=== PATIENT | female | born 1960 | race Caucasian/White ===

== ENCOUNTER 2019-11-21 09:31 | Outpatient (CLI) | payer BC, SELFPAY ==
--- NOTE | 2019-11-21 10:18 | ECG_ITS ---
Measurements Intervals [place] Rate: 61 P: 85 MN: 155 QRS: 85 QRSD: 95 T: 76 QT: 403 QTc: 407 SINUS RHYTHM No previous ECG available for comparison Electronically Signed On 11-21-2019 19:32:47 CHEESEMAKING [employer]ORER by Good Victoria M.D. [id number]
[2019-11-21 11:06] LABS: Basophils # 0.1 10^3/uL (0.0-0.1); Basophils % 0.8 %; Eosinophils # 0.1 10^3/uL (0.0-0.8); Eosinophils % 1.6 %; Hemoglobin 15.5 g/dL (11.5-15.3); Lymphocytes # 2.5 10^3/uL (0.8-4.8); Lymphocytes % 29.5 %; Mean Corpuscular Hemoglobin 32.7 pg (28.0-34.0); Mean Corpuscular Volume 99.2 fL (81-99); Mean Platelet Volume 9.2 fL (7.4-10.4); Monocytes # 0.7 10^3/uL (0.2-0.9); Monocytes % 8.6 %; Neutrophils # 4.9 10^3/uL (1.8-7.7); Nucleated Red Blood Cells % 0 %; Platelet Count 290 10^3/cmm (130-400); Red Blood Count 4.74 10^6/uL (4.1-5.3); Red Cell Distribution Width 12.7 % (12.1-15.1); White Blood Count 8.4 10^3/uL (4.0-10.0)
[2019-11-21 11:28] LABS: Anion Gap 14.3 (5-19); Blood Urea Nitrogen 9 mg/dL (8-23); Calcium 10.4 mg/Dl (8.8-10.2); Carbon Dioxide 29 mmol/L (22-29); Chloride 96 mmol/L (98-107); Glomerular Filtration Rate 125.4 mL/min (90-130); Glucose 98 mg/dL (74-106); Potassium 5.3 mmol/L (3.5-5.1); Sodium 134 mmol/L (136-145)
== END 2019-11-21 09:32 | disposition home or self-care (01) ==
LOC: RAD 09:35 → RT 09:40
PROVIDERS: Otolaryngology; Family Provider Internal Medicine; PCP Internal Medicine; Visit Provider Specialist
DX: Z01.810 Encounter for preprocedural cardiovascular examination (principal)
CPT/HCPCS: 80048; 85025; 93005

== ENCOUNTER 2019-11-25 15:07 | Outpatient (CLI) | payer BC, SELFPAY ==
--- NOTE | 2019-11-25 15:13 | CT_ITS ---
WS: [id number] CT HEAD WITH AND WITHOUT CONTRAST HISTORY: Brain, aneurysm, history of repair. TECHNIQUE: Noncontrast 2.5 mm axial images obtained from the vertex to the skull base. Additional meet ging performed at 2.5 mm axial images status post IV contrast. Bone and soft tissue windows are revie wed. All CT scans at [facility] use at least one of these dose optimization techniques: a utomated exposure control; mA and/or kV adjustment per patient size (includes targeted exams where do se is matched to clinical indication); or iterative reconstruction. CONTRAST: Omnipaque 300; 95 mL IV. DLP: 2260.57 mGy-cm. COMPARISON: None available. Significant artifact through the brain due to prior coiling of an aneurysm. Artifact is centered [place] g the region of the RIGHT cavernous sinus. On the felt hat flanging operator film there are multiple coils and clips. No p rior studies to evaluate for interval change. No acute hemorrhage is identified on the noncontrast examination. No midline shift or mass effect. Distal vertebral arteries are enhancing. Tip of the basilar artery is obscured by artifact. Large por tions of the distal carotid arteries and the [place] are also obscured. Evaluation f or recurrent aneurysm would be very difficult. There are no secondary findings of hemorrhage. Paranasal sinuses as visualized: Clear. Mastoid air cells: Clear. Calvarium and scalp: Large craniectomy defect involving the LEFT temporal lobe and craniotomy. CT/CT head wo/w con [id number] IMPRESSION: 1. Status post aneurysm coiling and clipping. Extensive beam hardening effect centered in the region of the distal RIGHT ICA or proximal RIGHT MCA. Large por tions of the brain in the [place] cannot be evaluated adequately with this amount of artifact. 2. No acute blood products are identified. 3. Prior LEFT temporal craniectomy/craniotomy. No appreciable aneurysm identif ied.
[2019-11-25] MEDS: iohexol 300 mg/mL 100 mL Btl IV (15:32)
== END 2019-11-25 15:08 | disposition home or self-care (01) ==
LOC: RADWPI 15:10
PROVIDERS: Family Provider Internal Medicine; PCP Internal Medicine; Visit Provider Physician Assistant
DX: I67.1 Cerebral aneurysm, nonruptured (principal); Z98.890 Other specified postprocedural states
CPT/HCPCS: 70470; Q9967

== ENCOUNTER 2019-12-06 12:27 | Outpatient (CLI) | payer BC, SELFPAY ==
--- NOTE | 2019-12-06 | XR_ITS ---
WS: [id number] PROCEDURE: XR chest 2V* [id number] CLINICAL INFORMATION: COUGH, SHORTNESS OF BREATH COMPARISON: August 05, 2018 FINDINGS: Heart: Normal cardiac silhouette. Lungs: Chronic emphysematous changes. Hyperinflation. No acute pulmonary infiltrates. Bones: Chronic appearing Anterior wedging at the thoracolumbar junction. XR/XR chest 2V* [id number] IMPRESSION: Chronic emphysematous changes with hyperinflation. No acute pulmonary infiltrat es.
== END 2019-12-06 12:28 | disposition home or self-care (01) ==
LOC: RADOUTREAD 15:08
PROVIDERS: Family Provider Internal Medicine; PCP Internal Medicine; Visit Provider Physician Assistant
DX: Z76.89 Persons encountering health services in other specified circumstances (principal)

== ENCOUNTER 2019-12-22 10:15 | Outpatient (CLI) | payer BC, SELFPAY ==
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
== END 2019-12-22 10:16 | disposition home or self-care (01) ==
LOC: ONCMED 10:22
PROVIDERS: Family Provider Internal Medicine; PCP Physician Assistant; Referring Provider Specialist; Visit Provider Radiology Radiation Oncology
DX: C10.1 Malignant neoplasm of anterior surface of epiglottis (principal); J44.9 Chronic obstructive pulmonary disease, unspecified; F17.210 Nicotine dependence, cigarettes, uncomplicated
CPT/HCPCS: 99205

== ENCOUNTER 2019-12-29 09:24 | Outpatient (CLI) | payer BC, SELFPAY ==
--- NOTE | 2019-12-29 09:29 | CT_ITS ---
WS: [id number] CT NECK WITH CONTRAST HISTORY: MALIGNANT NEOPLASM OF SUPRAGLOTTIS TECHNIQUE: Contiguous 5 mm axial images are performed through the neck with intravenous contrast. Sag ittal and coronal reformats are also submitted. All CT scans at [facility] use at least o ne of these dose optimization techniques: automated exposure control; mA and/or kV adjustment per pat ient size (includes targeted exams where dose is matched to clinical indication); or iterative recons truction. CONTRAST: CONTRAST: Omnipaque 300; 95 mL IV. DLP: 2067.19 mGycm COMPARISON: None available. Nasopharynx, oropharynx, hypopharynx and larynx are unremarkable. No soft tissue masses or abnormal e nhancement. Torus tubarius and fossa of Rosenmuller and parapharyngeal fat are normal. No significant lymphadenopathy is identified. Largest lymph node LEFT jugulodigastric measures 7 mm i n short axis diameter. Subcentimeter RIGHT thyroid nodule. Parotid salivary glands are unremarkable. No osseous abnormalities. Prior LEFT temporal craniotomy. Patient is status post coiling of the distal RIGHT ICA or proximal MC A. There is significant artifact through the skull base. Visualized paranasal sinuses and mastoid air cells are normal. Chronic emphysema at the lung apices. CT/CT neck w con* [id number] IMPRESSION: 1. No neck mass or adenopathy. No supraglottic tumor is identified. 2. Prior LEFT temporal craniectomy/craniotomy from prior aneurysm clipping.
[2019-12-29] MEDS: iohexol 300 mg/mL 100 mL Btl IV (09:45)
== END 2019-12-29 09:25 | disposition home or self-care (01) ==
LOC: RADWPI 09:27
PROVIDERS: Family Provider Internal Medicine; PCP Physician Assistant; Visit Provider Specialist
DX: C32.1 Malignant neoplasm of supraglottis (principal)
CPT/HCPCS: 70491; Q9967

== ENCOUNTER 2020-03-30 06:00 | Outpatient (RCR) | payer BC, SELFPAY | END 2020-04-08 23:59 | disposition home or self-care (01) | LOC: SST 06:00 | PROVIDERS: Family Provider Internal Medicine; PCP Physician Assistant; Visit Provider Physician Assistant | DX: C32.1 Malignant neoplasm of supraglottis (principal); R13.13 Dysphagia, pharyngeal phase; Z93.1 Gastrostomy status | CPT/HCPCS: 92526; 92610 ==

== ENCOUNTER 2020-04-09 06:00 | Outpatient (RCR) | payer BC, SELFPAY | END 2020-05-08 23:59 | disposition home or self-care (01) | LOC: SST 06:00 | PROVIDERS: PCP Physician Assistant; Visit Provider Physician Assistant | DX: R13.13 Dysphagia, pharyngeal phase (principal); Z85.21 Personal history of malignant neoplasm of larynx | CPT/HCPCS: 92526; 92610 ==

== ENCOUNTER 2020-05-09 06:00 | Outpatient (RCR) | payer BC, SELFPAY | END 2020-06-08 23:59 | disposition home or self-care (01) | LOC: SST 06:00 | PROVIDERS: PCP Physician Assistant; Referring Provider Physician Assistant; Visit Provider Physician Assistant | DX: R13.13 Dysphagia, pharyngeal phase (principal) | CPT/HCPCS: 92526 ==

== ENCOUNTER 2020-05-10 07:09 | Day surgery (SDC) | payer BC, SELFPAY ==
[2020-05-09 13:09] VITALS: BMI 21.2
[2020-05-10] VITALS (9 sets, daily range): BP systolic 113–161; BP diastolic 51–91; PULSE 64–75; RESP 12–20; TEMP 36.5–36.7; O2SAT 92–100
[2020-05-10] MEDS: sodium chloride 0.9% 1,000 ML 30 ML IV (07:45)
--- NOTE | 2020-05-10 08:13 | P.ANESASSM_ITS ---
Pre-Anesthetic Assessment Pre-Anesthetic Assessment: Height/Weight: Height 1.73 m Weight 63.503 kg Temp Pulse Resp BP Pulse Ox 97.7 F 69 20 H 113/57 92 05/10/20 07:23 05/10/20 07:23 05/10/20 07:23 05/10/20 07:23 05/10/20 07:23 Preop Diagnosis: basal cell carincoma Proposed Procedure: Operation Date: 05/10/20 08:30 Proposed Procedures p Excision of basal cell carcinoma of left arm(Left) - Petey Naqvi MD Familial anesthetic complications: none Was Beta Gómez taken within 24 brenda rs: N/A Last intake: Intake Last Liquid Date 05/09/20 Last Liquid Time 22:00 Last Solid Date 05/09/20 Last Solid Time 19:00 Social: Social History: No alcohol and No tobacco Comment: former msoker Exam: Pre-Anes Outpt Exam: alert, oriented x 3, clear to auscultation bilaterally and regular rate & rhythm Airway: Cervical ROM: WNL MP: 2 Dentition: False Additional comments: Patient recently had surgery on larynx and lymph node dissection. She is hoarse. She says her throat is still healing and wants to avoid placement of advanced airway devices. I told her with any surgery there is always the possibility that this may be required. She would like to proceed with local supplemented with fentanyl/versed with propofol as last resort. Pulmonary: Pulmonary: COPD Anesthetic Plan: ASA status: 2 Anesthesia: MAC, Local Only and Nurse-admin mod sedation Risk of > 500 ml blood loss (7ml/kg in children): No Meds/Allergies Current Medications: Current Medications Generic Name Dose Route Start Last Admin Trade Name Freq PRN Reason Stop Dose Admin Sodium Chloride 1,000 mls @ 30 ml s/hr 05/10/20 07:30 05/10/20 07:45 Sodium Chloride 0.9% IV 05/11/20 07:29 30 mls/hr .Q24H MADIHA Administration Data Anesthesia Cardiac Studies: No Data to Display
--- NOTE | 2020-05-10 08:35 | W.PM.OPSUD ---
Surgery/Procedure H&P Update DATE OF PROCEDURE: May 10, 2020 DATE H&P PERFORMED: 05/09/20 H&P UPDATE INFORMATION: No changes to prior documentation PREOP DIAGNOSIS: basal cell carincoma PLANNED PROCEDURE: Operation Date: 05/10/20 08:30 Proposed Procedures p Excision of basal cell carcinoma of left arm(Left) - Petey Naqvi MD
--- NOTE | 2020-05-10 09:26 | PM.OP ---
Operative Report Date of procedure: May 10, 2020 Pre-op Diagnosis: Basal cell carincoma on the left arm. Post-op diagnosis: same Procedure Done: 1. Excision of 3+ centimeter basal cell carcinoma on the left arm. 2. Intermediate layered closure of 10 cm incision. Specimens removed/disposition: Basal cell carcinoma from upper aspect of left arm. Pathology: As above. Surgeon: Petey Naqvi Anesthesia: Local Estimated blood loss (mL): 5 Complications: None. Condition: stable Disposition: same day Procedure: The patient was brought to the operating room and was placed in a supine position on the operating room table. The upper aspect of the left arm was prepped and draped in a sterile fashion. A combination of 1% lidocaine with 1 to 100,000 parts epinephrine and 0.5% bupivacaine was used for local anesthesia throughout the procedure. A longitudinal elliptical incision was carried out around the basal cell carcinoma area that measured over 3 cm in greatest diameter. Cautery was used to divide the tissue into the subcutaneous tissue and then was used to remove the entire ellipse of skin. Cautery was also used to undermine the skin both medially and laterally. The wound was irrigated with saline. Hemostasis was good. The 10 cm incision was then closed in layers with an underlying layer of inverted interrupted sutures of 3-0 Vicryl in the dermis. The skin was reapproximated using a running subcuticular suture of 4-0 Vicryl. Benzoin and Steri-Strips were placed over the incision and a sterile bandage followed. The patient was taken to the outpatient recovery area in stable condition postoperatively.
== END 2020-05-10 09:50 | disposition home or self-care (01) ==
PROVIDERS: PCP Physician Assistant; Visit Provider Surgery
PROC: (CPT 11604; principal; 2020-05-10 08:20)
DX: C44.619 Basal cell carcinoma of skin of left upper limb, including shoulder (principal); Z87.891 Personal history of nicotine dependence; J43.9 Emphysema, unspecified
CPT/HCPCS: 11604; 12032; 12345; J0690; J2001; J3490; J7030

== ENCOUNTER 2020-05-14 12:30 | Outpatient (CLI) | payer BC, SELFPAY ==
--- NOTE | 2020-05-14 12:34 | CT_ITS ---
WS: [id number] CT NECK TECHNIQUE: Contrast-enhanced CT of the neck with coronal and sagittal reformatted images. CLINICAL INFORMATION: NEOPLASM OF THE SUPRAGLOTTIS COMPARISON: CT December 29, 2019 DLP: 1552.[address] scans at [facility] use at least one of these dose optimization techniques: automat ed exposure control; mA and/or kV adjustment per patient size (includes targeted exams where dose is matched to clinical indication); or iterative reconstruction. FINDINGS: Prior postoperative changes left temporal craniotomy. Right supraclinoid ICA aneurysm embolization. T his results in beam hardening artifact partially obscuring the skull base. Parotid glands are normal in appearance. Submandibular glands are normal. Normal parapharyngeal fat. Normal posterior nasophary nx. No evidence of supraglottic or glottic mass. Normal piriform sinuses. Stable small right thyroid nodule. No cervical lymphadenopathy. Mastoid air cells and paranasal sinuses are well aerated. Emphysematous changes in the lung apices. CT/CT neck w con* [id number] IMPRESSION: 1. No evidence of supraglottic or glottic mass. 2. No cervical lymphadenopathy. 3. Salivary glands are normal. 4. Stable small right thyroid nodule. 5. Prior postoperative changes left temporal parietal craniotomy. Prior right supraclinoid ICA embolization. 4
[2020-05-14 13:23] LABS: Blood Urea Nitrogen 11 mg/dL (8-23)
[2020-05-14 13:24] LABS: Glomerular Filtration Rate 101.6 mL/min (90-130)
[2020-05-14] MEDS: iohexol 300 mg/mL 100 mL Btl IV (13:48)
== END 2020-05-14 12:31 | disposition home or self-care (01) ==
LOC: RADWPI 12:33
PROVIDERS: Family Provider Physician Assistant; PCP Physician Assistant; Visit Provider Specialist
DX: C32.1 Malignant neoplasm of supraglottis (principal); E04.1 Nontoxic single thyroid nodule
CPT/HCPCS: 70491; 82565; 84520; 88305; Q9967

== ENCOUNTER 2020-05-17 11:04 | Outpatient (CLI) | payer BC, SELFPAY ==
--- NOTE | 2020-05-17 11:12 | FL_ITS ---
WS: [id number] MODIFIED BARIUM SWALLOW HISTORY: Pharyngeal dysphagia FLUOROSCOPY TIME: 1.8 minutes. Modified barium swallow was performed by the speech pathologist. Fluoroscopy was provided with the pa tient in a lateral projection. Multiple food consistencies were provided. Patient swallowed all food and barium without difficulty. There is a a few episodes of laryngeal pene tration but no aspiration. Barium tablet was swallowed without difficulty. FL/FL barium swallow modifd [id number] IMPRESSION: 1. No aspiration. 2. Minimal laryngeal penetration. Please see speech therapist report also for recommendations.
== END 2020-05-17 11:05 | disposition home or self-care (01) ==
LOC: RAD 11:07
PROVIDERS: PCP Physician Assistant; Visit Provider Physician Assistant
DX: R13.13 Dysphagia, pharyngeal phase (principal)
CPT/HCPCS: 74230; 92611

== ENCOUNTER 2021-04-13 14:15 | Emergency (ER) | payer OTHER, SELFPAY ==
[2021-04-13 14:35] VITALS: BP 131/72; PULSE 77; RESP 18; TEMP 36.8; O2SAT 94; BMI 22.3
--- NOTE | 2021-04-13 14:46 | XRR_ITS ---
PROCEDURE INFORMATION: Exam: XR Chest Exam date and time: 04/13/2021 2:49 PM Age: 60 years old Clinical indication: Pain; On breathing; Additional info: Palpitations TECHNIQUE: Imaging protocol: XR of the chest. Views: 1 view. COMPARISON: CR XR chest 2V* [id number] 12/06/2019 12:27 PM FINDINGS: Lungs: The lungs are clear. Pleural spaces: Unremarkable. No pleural effusion. No pneumothorax. Heart/Mediastinum: Unremarkable. No cardiomegaly. Bones/joints: Unremarkable. XR/XR chest 1V portable [id number] IMPRESSION: No acute cardiopulmonary abnormality.
--- NOTE | 2021-04-13 14:46 | ECG_ITS ---
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
--- NOTE | 2021-04-13 14:47 | W.ED.CHESTPA ---
HPI - Chest Pain General: Chief Complaint: Chest Pain Stated Complaint: irregular heart beat,sob Time Seen by Provider: 04/13/21 14:42 History of Present Illness: HPI narrative: This patient is a 60-year-old female who presents to the emergency department for an occasional palpitations. Patient states that started a couple weeks ago after she started taking albuterol she taken inhaled dose of albuterol to get palpitations. Patient states that happened yesterday to and again last night. Patient is wants to be checked to make sure things okay. Patient denies any signs and symptoms at this time. Timing of current episode: episodic Associated symptoms: Reports palpitations; Deny abdominal pain, dyspnea, fever(s), nausea or vomiting Review of Systems General: Reports: 10 or more systems reviewed and unremarkable except in HPI and below Const: Denies: fever(s), chills, body aches or fatigue Eyes: Denies: change in vision or blurry vision ENMT: Denies: throat pain, hoarseness or mouth pain Card: Reports: palpitations; Denies: chest pain, irregular heart rhythm, edema, swelling of feet/ankles or lightheadedness Resp: Denies: dyspnea, productive cough, non-productive cough, wheezing or pain on inspiration GI: Denies: abdominal pain, nausea or vomiting : Denies: flank pain, difficulty voiding, dysuria, urinary frequency, urinary urgency or urinary hesitancy Musc: Denies: neck pain, back pain, extremity pain, extremity swelling, joint pain, joint swelling, joint redness, joint warmth or limited range of motion Skin/Breast: Denies: rash, pruritus, erythema or skin tenderness Neuro: Denies: headache(s), numbness in extremities or weakness in extremities Psych: Denies: anxiety or depression Physical Exam Const: COMMON NORMALS: no acute distress, average body habitus, patient oriented x3, no limitations, healthy appearing, alert and well nourished HENMT: COMMON NORMALS: normocephalic, atraumatic, hearing grossly normal bilaterally, external ears normal, EAC's normal, TM's normal bilaterally, Normal external nose present, Normal nasal mucous membranes and turbinates present, moist oral mucous membranes, oropharynx normal, dentition normal and gingiva normal HEAD & SCALP: normocephalic and atraumatic NOSE: Normal external nose present and Normal nasal mucous membranes and turbinates present EXTERNAL EAR: Yes external ears normal EXTERNAL AUDITORY CANAL: EAC's normal TYMPANIC MEMBRANE: TM's normal bilaterally Neck/C-Spine: COMMON NORMALS: full ROM, no lymphadenopathy, supple, no meningeal signs, no JVD, Thyroid normal and No carotid bruits THYROID: Thyroid normal Chest: COMMONS NORMALS: normal inspection of the chest, normal palpation of entire chest wall, normal inspection of the breasts and normal palpation of the breasts Breast/axilla inspection: Yes normal inspection of the breasts BREAST/AXILLA PALPATION: Yes normal palpation of the breasts Resp: COMMON NORMALS: normal respiratory effort, No retractions, No use of accessory muscles, clear to auscultation bilaterally and percussion normal AUSCULTATION: clear to auscultation bilaterally PERCUSSION: percussion normal Cardio: COMMON NORMALS: no JVD, regular rate, regular rhythm, S1 normal heart sound present, S2 normal heart sound present, No gallops present (Cardio), No clicks present (Cardio), No murmurs present (Cardio), No rub (Cardio) and Peripheral pulses 2+ throughout RATE: regular rate RHYTHM: regular rhythm HEART SOUNDS: S1 normal heart sound present and S2 normal heart sound present PERIPHERAL PULSES: Peripheral pulses 2+ throughout GI: COMMON NORMALS: Normal to inspection, nondistended, normoactive bowel sounds present, Soft to palpation, non-tender, No hepatosplenomegaly present, no masses and no bruits PALPATION: Yes Soft to palpation and Yes No hepatosplenomegaly present : COMMON NORMALS: Yes no CVA tenderness, Yes normal external appearance, Yes normal appearance of the vagina, Yes normal appearance of the cervix, Yes normal bimanual exam, Yes No adnexal tenderness and Yes no masses BLADDER/KIDNEY EXAM: Yes no CVA tenderness BIMANUAL EXAM - VAGINA & UTERUS: Yes normal bimanual exam Back/Pelvis: COMMON NORMALS: no CVA tenderness, thoracic and lumbar spine normal to inspection, no thoracic nor lumbar tenderness, thoraco-lumbar ROM normal and straight leg raise negative bilaterally Extremity: COMMON NORMALS: normal to inspection, full ROM, capillary refill normal, no joint enlargement, no clubbing, cyanosis or edema, no calf tenderness and no pedal edema Neuro: COMMON NORMALS: patient oriented x3 SENSORIUM/ORIENTATION: Yes alert MENINGEAL SIGNS: Yes no meningeal signs Course Reevaluation(s): Reevaluation #1: Negative evaluation in the emergency department for any acute findings. Patient has no complaints at this time. Patient is continue all home medications. And follow-up with her primary care physician in 2 to 3 days. Patient should work on trying to stop smoking. Patient states understanding should be discharged home Time: 17:10 Vital Signs: Vital signs: Vital Signs Temperature 98.2 F 04/13/21 14:35 Pulse Rate 77 04/13/21 14:35 Respiratory Rate 18 04/13/21 14:35 Blood Pressure 131/72 04/13/21 14:35 Pulse Oximetry 94 04/13/21 14:35 MDM - Chest Pain MDM Narrative: Medical decision making narrative: Negative evaluation in the emergency department for any acute findings. Patient has no complaints at this time. Patient is continue all home medications. And follow-up with her primary care physician in 2 to 3 days. Patient should work on trying to stop smoking. Patient states understanding should be discharged home Differential Diagnosis: Cardiac arrest differential diagnosis: Likely acute massive pulmonary embolism, acute respiratory failure, acute myocardial infarction and sudden cardiac Medical Records: Attestation: I reviewed the patient's medical records. Lab Data: Attestation: I reviewed the patient's lab results. Labs: Lab Results 04/13/21 04/13/21 04/13/21 Range/Units 15:36 15:36 15:36 WBC 6.9 (4.0-10.0) 10^3/ uL RBC 4.54 (4.1-5.3) 10^6/u L Hgb 14.2 (11.5-15.3) g/dL Hct 42.8 (37.0-47.0) % MCV 94.3 (81-99) fL MCH 31.3 (28.0-34.0) pg MCHC 33.2 (30.0-36.0) g/dL RDW 12.2 (12.1-15.1) % Plt Count 200 (130-400) 10^3/c mm MPV 9.5 (7.4-10.4) fL Neut % (Auto) 56.4 % Lymph % (Auto) 33.4 % [place] % (Auto) 8.5 % Eos % (Auto) 0.4 % Baso % (Auto) 1.2 % Neut # (Auto) 3.90 (1.8-7.7) 10^3/u L Lymph # (Auto) 2.3 (0.8-4.8) 10^3/u L [place] # (Auto) 0.6 (0.2-0.9) 10^3/u L Eos # (Auto) 0.0 (0.0-0.8) 10^3/u L Baso # (Auto) 0.1 (0.0-0.1) 10^3/u L Nucleated RBC % (a uto) 0 % Nucleated RBCs # 0.0 /100WBC Sodium 135 L (136-145) mmol/L Potassium 4.6 (3.5-5.1) mmol/L Chloride 98 (98-107) mmol/L Carbon Dioxide 26 (22-29) mmol/L Anion Gap 15.6 (5-19) BUN 7 L (8-23) mg/dL Creatinine 0.4 L (0.5-0.9) mg/dL GFR Calculation 161.7 H (90-130) mL/min Glucose 89 (65-115) mg/dL Calculated Osmolal ity 277 L (285-295) mOsm/k g Calcium 9.0 (8.5-10.5) mg/dL Total Bilirubin 0.4 (0.15-1.2) mg/dL AST 18 (0-32) U/L ALT 9 (0-33) U/L Alkaline Phosphata se 51 (35-105) IU/L Troponin T Baselin e 12 H (0-10) ng/L NT-Pro-B Natriuret Pep 58 (0-125) pg/mL Total Protein 6.3 L (6.6-8.7) g/dL Albumin 4.6 (3.5-5.2) g/dL Globulin 1.7 (1.3-4.6) g/dL TSH 0.80 (0.27-4.20) uIU/ mL Ethyl Alcohol < 10 (0-10) mg/dL Imaging Data^: CXR: Attestation: I personally reviewed and interpreted this imaging study as follows: My impression: Negative for acute findings EKG Data^: EKG 1: Attestation: I personally reviewed and interpreted this EKG as follows: EKG interpretation date: 04/13/21 EKG interpretation time: 14:32 Interpretation: Sinus rhythm heart rate 76 nonspecific EKG EKG 2: Attestation: I personally reviewed and interpreted this EKG as follows: EKG interpretation date: 04/13/21 EKG interpretation time: 15:26 Prior EKG tracings: available for review Interpretation: Normal sinus rhythm heart rate 65 Discharge Plan Discharge Patient Disposition: Home Clinical Impression: Palpitations Condition: Stable Prescriptions: No Action cetirizine 10 mg tablet 10 mg PO DAILY RF: 0 albuterol sulfate 90 mcg/actuation HFA aerosol inhaler 2 puff INHALATION QID PRN (Reason: Shortness Of Breath) RF: 0 Discharge Orders: Discharge ED (Routine); Ordered 04/13/21 Ordered By: Edgardo Romo Referrals: Georgiana Dickson PA [Primary Care Provider] - Discharge Diet: Advance as tolerated Discharge Activity: Resume usual activity Patient Instructions: Opioid Safety Activity Restrictions/Additional Instructions: Negative evaluation in the emergency department for any acute findings. Patient is continue all home medications. And follow-up with her primary care physician in 2 to 3 days. Patient should work on trying to stop smoking. Coding Level of Care Code ED Stitcher Utility for Chg Fwd Exam Comprehensive
[2021-04-13] MEDS: sodium chloride 0.9% 500 ML IV (15:39)
[2021-04-13 15:44] LABS: Basophils # 0.1 10^3/uL (0.0-0.1); Basophils % 1.2 %; Eosinophils % 0.4 %; Hematocrit 42.8 % (37.0-47.0); Hemoglobin 14.2 g/dL (11.5-15.3); Lymphocytes # 2.3 10^3/uL (0.8-4.8); Lymphocytes % 33.4 %; Mean Corpuscular HGB Conc 33.2 g/dL (30.0-36.0); Mean Corpuscular Hemoglobin 31.3 pg (28.0-34.0); Mean Corpuscular Volume 94.3 fL (81-99); Mean Platelet Volume 9.5 fL (7.4-10.4); Monocytes # 0.6 10^3/uL (0.2-0.9); Monocytes % 8.5 %; Neutrophils % 56.4 %; Nucleated Red Blood Cells % 0 %; Platelet Count 200 10^3/cmm (130-400); Red Blood Count 4.54 10^6/uL (4.1-5.3); Red Cell Distribution Width 12.2 % (12.1-15.1); White Blood Count 6.9 10^3/uL (4.0-10.0)
[2021-04-13 16:13] LABS: Troponin(5th) Baseline 12 ng/L (0-10)
[2021-04-13 16:23] LABS: Alanine Aminotransferase 9 U/L (0-33); Albumin Level 4.6 g/dL (3.5-5.2); Alkaline Phosphatase 51 IU/L (35-105); Blood Urea Nitrogen 7 mg/dL (8-23); Carbon Dioxide 26 mmol/L (22-29); Chloride 98 mmol/L (98-107); Creatinine Clr Calc Pharmacy 149.6612; Globulin 1.7 g/dL (1.3-4.6); Glomerular Filtration Rate 161.7 mL/min (90-130); Glucose 89 mg/dL (65-115); NT Pro B Type Natriuretic Pept 58 pg/mL (0-125); Osmolality Calculated 277 mOsm/kg (285-295); Sodium 135 mmol/L (136-145); Total Bilirubin 0.4 mg/dL (0.15-1.2); Total Protein 6.3 g/dL (6.6-8.7)
[2021-04-13 16:33] LABS: Alcohol Level < 10 mg/dL (0-10)
[2021-04-13 16:34] LABS: Anion Gap 15.6 (5-19)
[2021-04-13 16:35] LABS: Aspartate Amino Transferase 18 U/L (0-32); Potassium 4.6 mmol/L (3.5-5.1)
[2021-04-13 17:10] LABS: Add Urine Microscopic? NO; Charge for UA Resulting for Rev
[2021-04-13 17:14] LABS: Bilirubin Urine Neg (Negative); Blood Urine Neg (Negative); Glucose Urine UA Norm (Normal); Ketones Urine Negative (Negative); Leukocyte Esterase Urine Negative (Negative); Nitrate Urine Negative (Negative); Protein Urine Neg (Negative); Urine Appearance Clear (CLEAR); Urine Color Straw (Yellow); Urobilinogen Urine Norm (Negative); pH Urine 5 (5-7)
[2021-04-13 17:23] LABS: Amphetamines Screen Urine Negative (Negative); Barbiturates Screen Urine Negative (Negative); Benzodiazepines Screen Urine Negative (Negative); Cocaine Screen Urine Negative (Negative); Opiate Screen Urine Negative (Negative); PCP Screen Urine Negative (Negative); THC Screen Urine Positive (Negative)
[2021-04-13 17:44] VITALS: BP 129/67; PULSE 70; RESP 18; O2SAT 97
--- NOTE | 2021-04-13 18:40 | ECG_ITS ---
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
== END 2021-04-13 17:46 | disposition home or self-care (01) ==
PROVIDERS: Emergency Provider Emergency Medicine; PCP Physician Assistant
DX: R00.2 Palpitations (principal); R07.9 Chest pain, unspecified; R00.9 Unspecified abnormalities of heart beat; R06.02 Shortness of breath
CPT/HCPCS: 36415; 71045; 80053; 80306; 80307; 81003; 83880; 84443; 84484; 85025; 93005; 96360; 99283; J7040

== ENCOUNTER 2023-12-29 09:00 | Outpatient (CLI) | payer OTHER, SELFPAY ==
--- NOTE | 2023-12-29 09:04 | MM_ITS ---
WS: [id number] BILATERAL 3D TOMOSYNTHESIS DIGITAL SCREENING MAMMOGRAPHY WITH CAD CLINICAL INFORMATION: SCREENING HISTORY: Screening mammogram. No current complaints. COMPARISON: New baseline TECHNIQUE: Bilateral CC and MLO views. FINDINGS: Scattered fibroglandular densities bilaterally. Asymmetric dense breast tissue upper outer RIGHT edgardo [address]. Recommend RIGHT breast diagnostic mammography with spot compression views and ultrasound if persi stent. Lucent centered calcification LEFT breast. IMPRESSION: MM/[place] [id number] BI-RADS: 0-Incomplete: Need additional imaging evaluation FOLLOW UP: Need Additional Imaging Recommend RIGHT breast diagnostic mammography and ultrasound if persistent.
== END 2023-12-29 09:01 | disposition home or self-care (01) ==
LOC: RAD 09:01
PROVIDERS: PCP Physician Assistant; Visit Provider Physician Assistant
DX: Z12.31 Encounter for screening mammogram for malignant neoplasm of breast (principal); R92.323 Mammographic fibroglandular density, bilateral breasts; N64.89 Other specified disorders of breast
CPT/HCPCS: 77063; 77067

== ENCOUNTER 2024-02-08 11:47 | Outpatient (CLI) | payer MEDICARE, SELFPAY ==
[2024-02-08 11:57] VITALS: BMI 20.9
--- NOTE | 2024-02-08 11:59 | ECG_ITS ---
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 Interpretive Statements NAME OF STUDY: TREADMILL STRESS TEST INDICATION: [Dyspnea on Exertion] EXERCISE DATA: The patient was exercised by Tejas protocol. Baseline heart rate was 73 beats per minute. Baseline blood pressure was 127/92 millimeters of mercury. Maximal predicted heart rate was 155 beats per minute. Maximum heart rate achieved was 106 which was 68% of the maximum predicted heart rate. Maximum blood pressure was 164/66 millimeters of mercury. Total exercise time was 2 minutes 4 seconds . Maximum METs achieved was 4.6. The reason for ending the test was patient's symptoms of leg fatigue and shortness of breath. ELECTROCARDIOGRAM: BASELINE: Showed sinus rhythm, normal axis, no significant ST-T changes at the baseline noted. [] EXERCISE: At the peak exercise level, [] No significant ST-T changes suggestive of ischemia noted. [] RECOVERY: During the recovery period, heart rate dropped appropriately. No significant ST-T changes in the recovery suggestive of ischemia noted. [] CONCLUSION: 1. Exercise capacity is poor. 2. Heart rate response was suboptimal. 3. Blood pressure response was appropriate. 4. Symptoms not suggestive of ischemia. 5. Stress test is indeterminate to rule out ischemia as patient could not reach her target heart rate secondary to symptoms of shortness of breath and leg pain. Electronically Signed On 02-25-2024 6:52:46 CDT by Joey Izaguirre M.D. [id number]
[2024-02-08 12:29] VITALS: BP 136/83; PULSE 77
== END 2024-02-08 11:48 | disposition home or self-care (01) ==
PROVIDERS: PCP Physician Assistant; Visit Provider Physician Assistant
DX: R06.09 Other forms of dyspnea (principal)
CPT/HCPCS: 93017

== ENCOUNTER 2024-02-22 09:23 | Outpatient (CLI) | payer MEDICARE, OTHER, SELFPAY ==
--- NOTE | 2024-02-22 09:29 | CT_ITS ---
WS: [id number] LDCT LUNG CANCER SCREENING TECHNIQUE: Noncontrast CT of the chest with coronal and sagittal reformatted images. CLINICAL INFORMATION: NICOTINE DEPENDENCE,CIGARETTES COMPARISON: None. DLP: 44.69 mGy.cm DIvol: Mean CTDIvol: 0.60 (mGy) All CT scans at [facility] use at least one of these dose optimization techniques: automat ed exposure control; mA and/or kV adjustment per patient size (includes targeted exams where dose is matched to clinical indication); or iterative reconstruction. FINDINGS: Moderate chronic emphysematous changes. Pleural-based nodule LEFT upper lobe laterally maye uring 7.6 mm. Clustered nodules LEFT lower lobe. Slightly irregular spiculated nodule RIGHT middle lo be measuring 7.7 mm Normal caliber thoracic aorta. Aortic calcification. Coronary calcification. No mediastinal or hilar lymphadenopathy. No axillary lymphadenopathy. 2.4 cm low-attenuation lesion likely hepatic cyst. No comparisons. Recommend follow-up with ultrasoun d or contrast-enhanced CT abdomen pelvis. Additional tiny cysts dome of the liver. IMPRESSION: Pleural-based nodule LEFT upper lobe laterally measuring 7.6 mm. Recommend 3-month follow-up. Slightly spiculated RIGHT middle lobe nodule measuring 7.7 mm. Recommend 3-month follow-up. 2.4 cm low-attenuation lesion likely hepatic cyst. No comparisons. Recommend follow-up with ultrasoun d or contrast-enhanced CT abdomen pelvis. CT/CT lung screening [id number] LUNG-RADS: 4A-Probably Suspicious FOLLOW UP: 3 Month LDCT
== END 2024-02-22 09:24 | disposition home or self-care (01) ==
LOC: RAD 09:23
PROVIDERS: PCP Physician Assistant; Visit Provider Physician Assistant
DX: F17.210 Nicotine dependence, cigarettes, uncomplicated (principal); Z12.2 Encounter for screening for malignant neoplasm of respiratory organs
CPT/HCPCS: 71271

== ENCOUNTER 2024-02-29 12:38 | Outpatient (CLI) | payer OTHER, SELFPAY ==
--- NOTE | 2024-02-29 12:48 | MM_ITS ---
WS: [id number] RIGHT 3D TOMOSYNTHESIS DIGITAL MAMMOGRAPHY WITH CAD CLINICAL INFORMATION: ABNORMAL MAMMO HISTORY: Additional views COMPARISON: 12/29/2023 TECHNIQUE: 3 views of the right breast were obtained. FINDINGS: Scattered fibroglandular densities of the right breast. This partially compresses out on spot alisa ronn views and ultrasound is pending. ULTRASOUND BREAST RIGHT TECHNIQUE: Ultrasound right breast focused area of concern. CLINICAL INFORMATION: ABNORMAL MAMMO FINDINGS: Ultrasound upper outer quadrant RIGHT breast. Somewhat ill-defined dense shadowing tissue at the 10 o'clock position 1 cm from the nipple. This is taller than wide with shadowing on some images but indeterminate. Recommend further evaluation with u ltrasound-guided biopsy. This likely corresponds to the mammographic findings. IMPRESSION: MM/[place] [id number] BI-RADS: 4-Suspicious Finding-Biopsy Should Be Considered FOLLOW UP: US Guided Biopsy Recommended Recommend ultrasound-guided biopsy of the 10:00 lesion RIGHT breast 1 cm from t he nipple
== END 2024-02-29 12:39 | disposition home or self-care (01) ==
PROVIDERS: PCP Physician Assistant; Visit Provider Physician Assistant
DX: R92.8 Other abnormal and inconclusive findings on diagnostic imaging of breast (principal)
CPT/HCPCS: 76642; 77061; G0279

== ENCOUNTER 2024-03-07 09:47 | Outpatient (CLI) | payer OTHER, SELFPAY ==
--- NOTE | 2024-03-07 09:50 | CT_ITS ---
WS: [id number] CT ANGIOGRAM CEREBRAL ARTERIES HISTORY: CEREBRAL ANEURYSM TECHNIQUE: Pre and postcontrast imaging through the brain. CT angiogram is performed of the cerebral arteries. During arterial injection imaging is obtained from the skull vertex to the skull base in 1. 25 mm imaging. Coronal and sagittal reformats are submitted. Additional multi planar reformats of the cerebral arteries are submitted, MIP imaging also reviewed. All CT scans at [facility] use at least one of these dose optimization techniques: automated exposure control; mA and/or kV adjustme nt per patient size (includes targeted exams where dose is matched to clinical indication); or iterat trupti reconstruction. CONTRAST: Omnipaque 350; 100 mL IV. DLP: 1530.58 mGy.cm COMPARISON: 11/25/2019 Status post aneurysm coiling in the region of the distal RIGHT ICA or proximal MCA. There is a large amount of artifact from the aneurysm coils through the brain. No midline shift. No acute blood. No ed fish. No hydrocephalus. Intracranial vertebral arteries: Small caliber distal RIGHT vertebral artery. Basilar artery: Basilar artery is poorly visualized throughout its course due to artifact. Intracranial Internal carotid arteries: Mild carotid atherosclerotic plaque. Supraclinoid portion of the distal RIGHT ICA is bulbous measuring approximately 5 mm adjacent to the aneurysm clip. There is enhancement noted suggesting this is a small aneurysm. This area is better visualized today than on t he prior exam.Mildly bulbous appearance of the distal LEFT ICA in the supraclinoid region. Ectatic bu t not aneurysmal. Middle cerebral arteries: Normal. Anterior cerebral arteries and ACOM: Posterior cerebral arteries and PCOM's: Normal. Dural venous sinuses are normally enhancing. Mastoid air cells: Normal. Paranasal sinuses: Normal. Calvarium: Prior LEFT temporal craniotomy. CT/CT angio head [id number] IMPRESSION: 1. 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 There is a l arge amount of beam hardening artifact from the aneurysm clip obscuring detail. 2. Suspicious for 5 mm aneurysm at the site of the prior clipping. There is a slightly bulbous portion of the artery near the aneurysm clips. No hemorrhage. This may have been present on the prior study but better visualized today. 3. No additional aneurysms are identified. 4. Very mildly ectatic distal, supraclinoid LEFT ICA. 5. Prior LEFT craniotomy.
[2024-03-07 10:40] LABS: Blood Urea Nitrogen 11 mg/dL (8-23); Glomerular Filtration Rate 100.3 mL/min (90-130)
[2024-03-07] MEDS: iohexol 350 mg/mL 500 mL Btl (per mL) IV (10:52)
== END 2024-03-07 09:48 | disposition home or self-care (01) ==
PROVIDERS: Radiology Diagnostic Radiology; PCP Physician Assistant; Visit Provider Physician Assistant
DX: I67.1 Cerebral aneurysm, nonruptured (principal)
CPT/HCPCS: 70496; 82565; 84520; Q9967

== ENCOUNTER 2024-05-09 11:53 | Outpatient (CLI) | payer OTHER, SELFPAY ==
[2024-05-09 13:24] LABS: Blood Urea Nitrogen 11 mg/dL (8-23); Glomerular Filtration Rate 123.8 mL/min (90-130)
== END 2024-05-09 11:54 | disposition home or self-care (01) ==
LOC: RAD 11:55
PROVIDERS: Radiology Diagnostic Radiology; PCP Physician Assistant; Visit Provider Physician Assistant
DX: R91.1 Solitary pulmonary nodule (principal)
CPT/HCPCS: 82565; 84520

== ENCOUNTER 2024-06-07 11:51 | Outpatient (CLI) | payer OTHER, SELFPAY ==
--- NOTE | 2024-06-07 11:52 | CT_ITS ---
WS: [id number] CT CHEST TECHNIQUE: Contrast enhanced CT of the chest with coronal and sagittal reformatted images. CLINICAL INFORMATION: MULTIPLE LUNG NODULES COMPARISON: 02/22/2024 DLP: 248.[address] scans at [facility] use at least one of these dose optimization techniques: automated e xposure control; mA and/or kV adjustment per patient size (includes targeted exams where dose is matc hed to clinical indication); or iterative reconstruction. FINDINGS: Moderate chronic emphysematous changes similar to previous. Pleural-based nodule LEFT upper lobe late [place] measuring 7.6 mm previously described is stable. Clustered nodules LEFT lower lobe are unchanged. Slightly irregular spiculated nodule RIGHT middle lobe measuring 7.1 mm unchanged. Stable 2.4 cm low-attenuation lesion likely hepatic cyst. Additional tiny cysts dome of the liver alt anyi some are too small to characterize Aortic calcification. Proximal main pulmonary arteries are normal. Normal descending thoracic aorta. No axillary lymphadenopathy. LEFT adrenal nodule likely adenoma measuring [address]/CT chest w con* [id number] IMPRESSION: 1. No changes compared to 02/22/2024 2. Recommend 12-month follow-up chest CT
[2024-06-07] MEDS: iohexol 350 mg/mL 500 mL Btl (per mL) IV (12:36)
== END 2024-06-07 11:52 | disposition home or self-care (01) ==
LOC: RAD 11:51
PROVIDERS: PCP Physician Assistant; Visit Provider Physician Assistant
DX: R91.8 Other nonspecific abnormal finding of lung field (principal)
CPT/HCPCS: 71260; Q9967

== ENCOUNTER 2024-06-15 11:53 | Outpatient (CLI) | payer MEDICARE, SELFPAY ==
--- NOTE | 2024-06-15 11:54 | US_ITS ---
WS: [id number] ULTRASOUND-GUIDED RIGHT BREAST BIOPSY CLINICAL INFORMATION: ABNORMAL MAMMOGRAM FINDINGS: The procedure including risks, benefits, and complications were discussed with the patient who agreed to proceed. Using sterile technique patient was prepped and draped in the usual sterile fashion. Aft er 1% lidocaine utilizing real-time ultrasound guidance 5 14-gauge cores were obtained of the RIGHT b reast lesion at the 10 o'clock position 1 cm from the nipple. Subsequently a titanium clip was placed in the biopsy cavity. No immediate complications. Pathology demonstrates dense stromal fibrosis with focal fibroadenomatoid change. Background changes of duct ectasia. Negative for malignancy. US/[place] [id number] IMPRESSION: 1. Uncomplicated ultrasound-guided RIGHT breast biopsy. 2. The pathology demonstrates stromal fibrosis with focal fibroadenomatoid jeannie nge. Negative for malignancy. 3. Pathology is benign. Recommend return to annual screening mammography. BI-RADS: 2-Benign FOLLOW UP: 1 Year Follow-up
== END 2024-06-15 11:54 | disposition home or self-care (01) ==
LOC: RAD 11:53
PROVIDERS: PCP Physician Assistant; Visit Provider Physician Assistant
DX: R92.8 Other abnormal and inconclusive findings on diagnostic imaging of breast (principal); N60.39 Fibrosclerosis of unspecified breast; N64.89 Other specified disorders of breast
CPT/HCPCS: 19083; 88305